=== PATIENT | male | born 1980 | race Caucasian/White ===

== ENCOUNTER 2020-06-26 14:10 | Emergency (ER) | payer OTHER ==
[~2020-06-26] VITALS: Ht 182.9 cm; Wt 93.0 kg
[2020-06-26] MEDS ORDERED: ABILIFY10 MG PO (14:53)
[2020-06-26] MEDS ORDERED: ATIVAN1 MG PO (14:53)
== END 2020-06-26 15:11 | disposition home or self-care (01) ==
LOC: ED 14:10
DX: F31.11 Bipolar disorder, current episode manic without psychotic features, mild (principal); F17.200 Nicotine dependence, unspecified, uncomplicated
CPT/HCPCS: 99283

== ENCOUNTER 2020-07-05 08:37 | Emergency (ER) | payer MEDICAID ==
[~2020-07-05] VITALS: Ht 182.9 cm; Wt 93.0 kg
[~2020-07-05 08:37] MED LIST: ABILIFY10 MG PO; ATIVAN1 MG PO
--- OUTSIDE RECORDS SUMMARY | 2020-07-05 08:40 | XMS ---
PreManage Notification: STEPHENIE DAWN Security Violent Crimes Detective Events No recent Security Events currently on file CRITERIA MET - [facility] - 2 Visits in 30 Days CARE PROVIDERS There are no care providers on record at this time. Paul has no Care Guidelines for this patient. [facility] NOTE: Visits indicate total known visits. ED/C VISIT TRACKING (12 MO.) [facility] COMPLAINT: - UNABLE TO SLEEP 06/26/2020 14:12 [facility] TYPE: Emergency COMPLAINT: - NOT ABLE TO SLEEP, RESTLESS LEGS/ANXIETY DIAGNOSES: - Bipolar disorder, unspecified INPATIENT VISIT TRACKING (12 MO.) No inpatient visits to display in this time frame [email or web address]
[2020-07-05] MEDS ORDERED: ABILIFY30 MG PO (09:08)
[2020-07-05] MEDS ORDERED: ATIVAN1 MG PO (09:08)
== END 2020-07-05 09:18 | disposition home or self-care (01) ==
LOC: ED 08:37
DX: G47.00 Insomnia, unspecified (principal); F41.9 Anxiety disorder, unspecified; F17.200 Nicotine dependence, unspecified, uncomplicated
CPT/HCPCS: 99283

== ENCOUNTER 2020-07-15 12:11 | Emergency (ER) | payer SELFPAY ==
[~2020-07-15] VITALS: Ht 182.9 cm; Wt 93.0 kg
[~2020-07-15 12:11] MED LIST changes: +ABILIFY30 MG PO
--- OUTSIDE RECORDS SUMMARY | 2020-07-15 12:14 | XMS ---
PreManage Notification: STEPHENIE DAWN Security Head Of History Events No recent Security Events currently on file CRITERIA MET - Group Notification - [facility] - 2 Visits in 30 Days CARE PROVIDERS There are no care providers on record at this time. Paul has no Care Guidelines for this patient. Care History Medical/Surgical 07/09/2020 [facility] [place] - PATIENT CURRENTLY WAITING ON [employer] FROM [place] [employer] TO [place] [employer]. - [facility] WILL SEND PATIENT NO PCP LETTER WITH PCP LIST ATTACHED. E.D. VISIT COUNT (12 MO.) 3 [facility] TOTAL 3 NOTE: Visits indicate total known visits. ED/UCC VISIT TRACKING (12 MO.) 07/15/2020 12:[address] [facility] [place] TYPE: Emergency COMPLAINT: - MEDICAL CLEARANCE 07/05/2020 08:38 [facility] TYPE: Emergency COMPLAINT: - UNABLE TO SLEEP DIAGNOSES: - Anxiety disorder, unspecified - Nicotine dependence, unspecified, uncomplicated - Insomnia, unspecified 06/26/2020 14:[address] [facility] [facility] [place] TYPE: Emergency COMPLAINT: - NOT ABLE TO SLEEP, RESTLESS LEGS/ANXIETY DIAGNOSES: - Bipolar disorder, unspecified - Nicotine dependence, unspecified, uncomplicated - Bipolar disorder, current episode manic without psychotic features, mild INPATIENT VISIT TRACKING (12 MO.) No inpatient visits to display in this time frame [email or web address]
[2020-07-15] MEDS ORDERED: TRAZODONE HCL150 MG PO (16:37)
[2020-07-15] MEDS ORDERED: ATIVAN1 MG PO (16:37)
== END 2020-07-15 16:48 | disposition home or self-care (01) ==
LOC: ED 12:11
DX: F41.9 Anxiety disorder, unspecified (principal); G47.00 Insomnia, unspecified; T43.595A Adverse effect of other antipsychotics and neuroleptics, initial encounter; Z79.899 Other long term (current) drug therapy
CPT/HCPCS: 99283